=== PATIENT | male | born 1935 ===

== ENCOUNTER 2021-05-12 05:50 | Day surgery (SDC) | payer OTHER ==
[~2021-05-12 05:50] MED LIST: GABAPEN PO; LISINOP PO; NORVASC2.5 M1 PO; PRADAXA75 MG PO; SIMVAST PO
== END 2021-05-12 16:45 | disposition home or self-care (01) ==
LOC: CIR.AMB 05:50
PROVIDERS: ATTEND Orthopaedic Surgery Hand Surgery
DX: G56.02 Carpal tunnel syndrome, left upper limb (principal); Z20.822 Contact with and (suspected) exposure to COVID-19

== ENCOUNTER 2021-07-14 05:56 | Day surgery (SDC) | payer OTHER | END 2021-07-14 13:30 | disposition home or self-care (01) | LOC: CIR.AMB 05:56 | PROVIDERS: ATTEND Orthopaedic Surgery Hand Surgery | DX: G56.01 Carpal tunnel syndrome, right upper limb (principal); Z20.822 Contact with and (suspected) exposure to COVID-19 ==